=== PATIENT | male | born 1955 | race Caucasian/White ===

== ENCOUNTER 2021-01-11 07:49 | Emergency (ER) | payer OTHER ==
[2021-01-11 08:42] LABS: Hemoglobin 10.3 g/dL (14.0-18.0); Mean Corpuscular HGB CONC 33.9 g/dL (32.0-36.0); Mean Corpuscular Hemoglobin 30.9 pg (27.0-31.0); Mean Corpuscular Volume 91.3 fL (78.0-98.0); Mean Platelet Volume 6.8 fL (7.4-10.4); Platelet Count 274 thou/uL (130-400); RBC Distribution Width 12.3 % (11.5-14.5); Red Blood Cell (RBC) Count 3.34 mill/uL (4.70-6.10); White Blood Cell (WBC) Count 15.9 thou/uL (4.8-10.8)
[2021-01-11] MEDS ORDERED: Cefepime 1 GM VIAL ONE (08:56)
[2021-01-11] MEDS ORDERED: Cefepime 2 GM VIAL ONE (08:59)
[2021-01-11 09:06] LABS: Anion Gap 11 mmol/L (10-20); BUN (Urea Nitrogen) 16 mg/dL (8.4-25.7); Calc. Creatinine Clearance 0 mL/min (70-130); Carbon Dioxide 22 mmol/L (23-31); Chloride 99 mmol/L (98-107); Potassium 3.7 mmol/L (3.5-5.1); Sodium 128 mmol/L (136-145)
[2021-01-11 09:07] LABS: ALT (SGPT) 8 U/L (8-55); AST (SGOT) 9 U/L (5-34); Albumin 3.7 g/dL (3.4-4.8); Alkaline Phosphatase 98 U/L (40-110); Band 4 % (5-11); Bilirubin, Total 1.1 mg/dL (0.2-1.2); Calcium 9.1 mg/dL (7.8-10.44); Globulin 2.6 g/dL (2.4-3.5); Glucose 137 mg/dL (80-115); Lymphocytes 11 % (21-51); MDiff Complete? YES; Monocytes 11 % (0-10); Neutrophil 74 % (42-75); Platelet Morphology Comment Appears Adequate; Polychromasia SLIGHT = 2-3 cells (100X) (0-2/hpf); Protein, Total 6.3 g/dL (5.8-8.1)
[2021-01-11] MEDS ORDERED: VANCOMYCIN 1.75 GM/350 ML BAG 1.75 GM in Premix Bag 1 BAG IVPB SCH (09:15)
[2021-01-11] MEDS ORDERED: Iopamidol-370 76% 500 ML 1 ML ONE (09:30)
[2021-01-11] MEDS ORDERED: Lidocaine 1% w/Epinephrine 1:100K 20 ML VIAL ONE (09:58)
[2021-01-11] MEDS ORDERED: Morphine 4 MG/ML VIAL ONE (10:03)
[2021-01-11] MEDS ORDERED: Ondansetron PF 4 MG/2 ML Vial ONE (10:03)
== END 2021-01-11 11:08 | disposition home or self-care (01) ==
LOC: ERS 07:49
DX: K61.1 Rectal abscess (principal); K21.9 Gastro-esophageal reflux disease without esophagitis; F17.210 Nicotine dependence, cigarettes, uncomplicated; Z79.899 Other long term (current) drug therapy
CPT/HCPCS: 36415; 72193; 80053; 83605; 85025; 87040; 96365; 96375; J0692; J2270; J2405; J3370; Q9967

== ENCOUNTER 2021-09-21 08:14 | Inpatient (IN) | payer OTHER ==
[2021-09-21] MEDS ORDERED: Iopamidol 370 76% 100 ML VIAL ONE (09:26)
[2021-09-21 09:55] LABS: #Lymphocytes 0.6 thou/uL (1.20-3.40); #Monocytes 0.7 thou/uL (0.11-0.59); #Neutrophils 10.4 thou/uL (1.40-6.50); %Basophils 0.1 % (0.0-1.0); %Eosinophils 0.1 % (0.0-10.0); %Lymphocytes 5.2 % (21.0-51.0); %Monocytes 5.8 % (0.0-10.0); %Neutrophils 88.8 % (42.0-75.0); Hemoglobin 9.3 g/dL (14.0-18.0); Mean Corpuscular HGB CONC 33.8 g/dL (32.0-36.0); Mean Corpuscular Hemoglobin 31.1 pg (27.0-31.0); Platelet Count 321 thou/uL (130-400); RBC Distribution Width 12.4 % (11.5-14.5); White Blood Cell (WBC) Count 11.7 thou/uL (4.8-10.8)
[2021-09-21] MEDS ORDERED: Vancomycin 1.5 GRAM/300 ML BAG 1.5 GM in Premix Bag 1 BAG IVPB SCH (10:00)
[2021-09-21] MEDS ORDERED: metroNIDAZOLE 500 MG in Premix Bag 1 BAG IVPB SCH (10:00)
[2021-09-21 10:18] LABS: ALT (SGPT) 11 U/L (8-55); AST (SGOT) 26 U/L (5-34); Albumin 3.8 g/dL (3.4-4.8); Alkaline Phosphatase 100 U/L (40-110); Anion Gap 14 mmol/L (10-20); BUN (Urea Nitrogen) 23 mg/dL (8.4-25.7); Bilirubin, Total 0.7 mg/dL (0.2-1.2); Calc. Creatinine Clearance 0 mL/min (70-130); Calcium 9.7 mg/dL (7.8-10.44); Carbon Dioxide 22 mmol/L (23-31); Chloride 96 mmol/L (98-107); Glucose 140 mg/dL (80-115); Protein, Total 6.8 g/dL (5.8-8.1); Sodium 128 mmol/L (136-145)
[2021-09-21] MEDS ORDERED: cefTRIAXone\\ROCEPHIN 1 GM VIAL ONE (10:43)
[2021-09-21 11:02] LABS: SARS-CoV-2 NAA Rapid Test Not Detected (NotDetected)
[2021-09-21 13:02] LABS: Lactic Acid 1.3 mmol/L (0.5-2.2)
[2021-09-21] MEDS ORDERED: Bupivacaine PF 0.5% 30 ML VIAL ONE (15:51)
[2021-09-21] MEDS ORDERED: Xylocaine 1% w/ Epi 1:100K 10 ML VIAL ONE (15:51)
[2021-09-21] MEDS ORDERED: Fentanyl 250 MCG/5 ML VIAL ONE (16:04)
[2021-09-21] MEDS ORDERED: cefOXitin 2 GM VIAL ONE (16:11)
[2021-09-21] MEDS ORDERED: Sodium Chloride 0.9% 100 ML ONE (16:11)
[2021-09-21] MEDS ORDERED: PHENYLEPHRINE-NS 100 MCG/ML 10 ML SYRINGE ONE (16:20)
[2021-09-21] MEDS ORDERED: Ondansetron PF 4 MG/2 ML Vial ONE (16:20)
[2021-09-21] MEDS ORDERED: Lidocaine 1% PF 5 ML VIAL ONE (16:20)
[2021-09-21] MEDS ORDERED: PROPOFOL 200 MG/20 ML VIAL ONE (16:20)
[2021-09-21] MEDS ORDERED: Dexamethasone 20 MG/5 ML VIAL ONE (16:20)
[2021-09-21] MEDS ORDERED: ePHEDrine 50 MG/ML VIAL ONE (16:20)
[2021-09-21] MEDS ORDERED: Ondansetron PF 4 MG/2 ML Vial IVP PRN (18:08)
[2021-09-21] MEDS ORDERED: Ondansetron ODT 4 MG TAB PO PRN (18:08)
[2021-09-21] MEDS ORDERED: Acetaminophen 650 MG Suppository PR PRN (18:08)
[2021-09-21] MEDS ORDERED: Acetaminophen 325 MG TAB PO PRN (18:08)
[2021-09-21] MEDS ORDERED: Thiamine HCl 200 MG/2 ML VIAL IM SCH (18:15)
[2021-09-21] MEDS ORDERED: cefTRIAXone\\ROCEPHIN 1 GM in Sodium Chloride 0.9% 100 ML IVPB SCH (18:15)
[2021-09-21 19:29] LABS: Anion Gap 13 mmol/L (10-20); BUN (Urea Nitrogen) 18 mg/dL (8.4-25.7); Calc. Creatinine Clearance 0 mL/min (70-130); Calcium 8.2 mg/dL (7.8-10.44); Carbon Dioxide 21 mmol/L (23-31); Chloride 101 mmol/L (98-107); Glucose 121 mg/dL (80-115); Sodium 131 mmol/L (136-145)
[2021-09-21] MEDS: Sodium Chloride 0.9% 1,000 ML IV SCH (20:12)
[2021-09-21] MEDS: metroNIDAZOLE 500 MG in Premix Bag 1 BAG IVPB SCH (20:14)
[2021-09-21 20:51] VITALS: BMI 20.7
[2021-09-21] MEDS: levETIRAcetam 500 MG TAB PO SCH (20:52)
[2021-09-21] MEDS: Cefepime 2 GM in Sodium Chloride 0.9% 100 ML IVPB SCH (21:23)
[2021-09-21] MEDS: Vancomycin 1 GM in Premix Bag 1 BAG IVPB SCH (23:01)
[2021-09-22] MEDS: metroNIDAZOLE 500 MG in Premix Bag 1 BAG IVPB SCH ×3 (04:01→20:24)
[2021-09-22 04:17] LABS: Potassium, Urine 47.4 mmol/L
[2021-09-22 05:01] LABS: #Lymphocytes 0.5 thou/uL (1.20-3.40); #Monocytes 0.4 thou/uL (0.11-0.59); #Neutrophils 10.7 thou/uL (1.40-6.50); %Lymphocytes 4.6 % (21.0-51.0); %Monocytes 3.5 % (0.0-10.0); %Neutrophils 91.9 % (42.0-75.0); Hemoglobin 8.3 g/dL (14.0-18.0); Mean Corpuscular Hemoglobin 31.7 pg (27.0-31.0); Mean Corpuscular Volume 93.1 fL (78.0-98.0); Mean Platelet Volume 6.1 fL (7.4-10.4); Platelet Count 283 thou/uL (130-400); RBC Distribution Width 12.4 % (11.5-14.5); White Blood Cell (WBC) Count 11.7 thou/uL (4.8-10.8)
[2021-09-22 05:19] LABS: Anion Gap 12 mmol/L (10-20); BUN (Urea Nitrogen) 18 mg/dL (8.4-25.7); Calc. Creatinine Clearance 79 mL/min (70-130); Calcium 8.4 mg/dL (7.8-10.44); Carbon Dioxide 20 mmol/L (23-31); Chloride 103 mmol/L (98-107); Glucose 132 mg/dL (80-115); Potassium 4.6 mmol/L (3.5-5.1); Sodium 130 mmol/L (136-145)
[2021-09-22] MEDS: Vancomycin 1 GM in Premix Bag 1 BAG IVPB SCH (10:02)
[2021-09-22] MEDS: Folic Acid 1 MG TAB PO SCH (10:02)
[2021-09-22] MEDS: Cyanocobalamin (Vitamin B-12) 1,000 MCG TAB PO SCH (10:02)
[2021-09-22] MEDS: Thiamine 100 MG TAB PO SCH (10:02)
[2021-09-22] MEDS: levETIRAcetam 500 MG TAB PO SCH (10:03)
[2021-09-22] MEDS: Cefepime 2 GM in Sodium Chloride 0.9% 100 ML IVPB SCH ×2 (10:05→22:09)
[2021-09-22] MEDS: Sodium Chloride 0.9% 1,000 ML IV SCH ×2 (13:36→22:58)
[2021-09-22 21:21] LABS: Vancomycin, Trough 19.6 ug/mL
[2021-09-22] MEDS: Vancomycin HCl 750 MG in Sodium Chloride 0.9% 250 ML 250 ML IVPB SCH (22:56)
[2021-09-23] MEDS: metroNIDAZOLE 500 MG in Premix Bag 1 BAG IVPB SCH ×2 (03:27→12:57)
[2021-09-23 05:13] LABS: #Basophils 0.1 thou/uL (0.0-0.2); #Lymphocytes 1.3 thou/uL (1.20-3.40); #Monocytes 0.8 thou/uL (0.11-0.59); #Neutrophils 12.6 thou/uL (1.40-6.50); %Basophils 0.7 % (0.0-1.0); %Eosinophils 0.1 % (0.0-10.0); %Lymphocytes 8.7 % (21.0-51.0); %Monocytes 5.2 % (0.0-10.0); %Neutrophils 85.3 % (42.0-75.0); Hemoglobin 7.8 g/dL (14.0-18.0); Mean Corpuscular HGB CONC 33.1 g/dL (32.0-36.0); Mean Corpuscular Volume 93.7 fL (78.0-98.0); Mean Platelet Volume 6.3 fL (7.4-10.4); Platelet Count 303 thou/uL (130-400); RBC Distribution Width 12.6 % (11.5-14.5); Red Blood Cell (RBC) Count 2.51 mill/uL (4.70-6.10); White Blood Cell (WBC) Count 14.7 thou/uL (4.8-10.8)
[2021-09-23 05:41] LABS: Anion Gap 12 mmol/L (10-20); BUN (Urea Nitrogen) 27 mg/dL (8.4-25.7); Calc. Creatinine Clearance 85 mL/min (70-130); Calcium 8.5 mg/dL (7.8-10.44); Carbon Dioxide 22 mmol/L (23-31); Chloride 105 mmol/L (98-107); Glucose 111 mg/dL (80-115); Potassium 4.8 mmol/L (3.5-5.1); Sodium 134 mmol/L (136-145)
[2021-09-23 07:25] LABS: Reticulocyte Count 0.7 % (0.5-1.5)
[2021-09-23 07:31] LABS: INR-International Normal Ratio 1.1; Prothrombin Time 13.8 sec (12.0-14.7)
[2021-09-23 07:43] LABS: Iron 38 ug/dL (65-175); Iron Binding Capacity, Total 221 mcg/dL (261-462)
[2021-09-23 08:01] VITALS: BP 110/65; TEMP 98.8
[2021-09-23 08:09] LABS: Ferritin 246.47 ng/mL (22-322)
[2021-09-23] MEDS: Cyanocobalamin (Vitamin B-12) 1,000 MCG TAB PO SCH (10:07)
[2021-09-23] MEDS: Thiamine 100 MG TAB PO SCH (10:07)
[2021-09-23] MEDS: Vancomycin HCl 750 MG in Sodium Chloride 0.9% 250 ML 250 ML IVPB SCH (10:08)
[2021-09-23] MEDS: Folic Acid 1 MG TAB PO SCH (10:08)
[2021-09-23] MEDS: Cefepime 2 GM in Sodium Chloride 0.9% 100 ML IVPB SCH (10:17)
[2021-09-23 12:09] LABS: #Lymphocytes 1.3 thou/uL (1.20-3.40); #Monocytes 0.8 thou/uL (0.11-0.59); #Neutrophils 9.6 thou/uL (1.40-6.50); %Eosinophils 0.1 % (0.0-10.0); %Lymphocytes 11.4 % (21.0-51.0); %Monocytes 6.9 % (0.0-10.0); %Neutrophils 81.6 % (42.0-75.0); Hemoglobin 7.7 g/dL (14.0-18.0); Mean Corpuscular HGB CONC 33.1 g/dL (32.0-36.0); Mean Corpuscular Hemoglobin 31.2 pg (27.0-31.0); Mean Platelet Volume 6.4 fL (7.4-10.4); Platelet Count 283 thou/uL (130-400); RBC Distribution Width 12.6 % (11.5-14.5); Red Blood Cell (RBC) Count 2.46 mill/uL (4.70-6.10); White Blood Cell (WBC) Count 11.8 thou/uL (4.8-10.8)
== END 2021-09-23 15:50 | disposition home or self-care (01) | DRG 854 ==
LOC: ERS 08:14 → SDC 14:47 → SURG A 14:51
PROVIDERS: ADMIT Hospitalist; ATTEND Internal Medicine
PROC: 0D9P0ZZ Drainage of Rectum, Open Approach (ICD-10-PCS; principal; 2021-09-21)
DX: A41.9 Sepsis, unspecified organism (principal); K61.1 Rectal abscess; E87.1 Hypo-osmolality and hyponatremia; N17.9 Acute kidney failure, unspecified; E87.2 Acidosis; Z20.822 Contact with and (suspected) exposure to COVID-19; K21.9 Gastro-esophageal reflux disease without esophagitis; F17.210 Nicotine dependence, cigarettes, uncomplicated; F10.20 Alcohol dependence, uncomplicated; G40.909 Epilepsy, unspecified, not intractable, without status epilepticus; F04 Amnestic disorder due to known physiological condition; F03.90 Unspecified dementia, unspecified severity, without behavioral disturbance, psychotic disturbance, mood disturbance, and anxiety; Z88.0 Allergy status to penicillin; Z91.018 Allergy to other foods; Z79.899 Other long term (current) drug therapy
CPT/HCPCS: 36415; 74177; 80048; 80053; 80202; 82436; 82607; 82728; 82746; 83540; 83550; 83605; 83930; 83935; 84133; 84300; 84484; 84560; 85025; 85046; 85610; 85730; 86850; 86900; 86901; 87040; 93005; 96374; 96375; J0692; J0694; J0696; J1100; J2405; J2704; J3010; J3370; J3411; J3490; J7050; Q9967; S0020; U0002

== ENCOUNTER 2022-02-01 09:34 | Outpatient (CLI) | payer OTHER ==
[2022-02-01 10:57] LABS: #Basophils 0.1 10x3/uL (0.0-0.2); #Eosinphils 0.1 10x3/uL (0.0-0.5); #Monocytes 0.5 10x3/uL (0.0-1.1); #Neutrophils 4.2 10x3/uL (1.5-8.4); %Basophils 0.8 % (0.0-2.0); %Lymphocytes 21.7 % (18.0-47.0); %Monocytes 7.6 % (0.0-10.0); %Neutrophils 68.6 % (40.0-75.0); Hemoglobin 9.9 g/dL (13.5-17.5); Mean Corpuscular HGB CONC 35.2 g/dL (32.0-36.0); Mean Corpuscular Volume 82.4 fl (81.2-95.1); Mean Platelet Volume 8.9 fl (7.4-10.4); Platelet Count 331 10x3/uL (150-450); RBC Distribution Width 14.9 % (11.5-14.5); Red Blood Cell (RBC) Count 3.41 10x6/uL (4.32-5.72); White Blood Cell (WBC) Count 6.1 10x3/uL (3.5-10.5)
[2022-02-01 11:19] LABS: Anion Gap 17 mmol/L (10-20); BUN (Urea Nitrogen) 25 mg/dL (8.4-25.7); Calc. Creatinine Clearance 0 mL/min (70-130); Calcium 9.6 mg/dL (7.8-10.44); Carbon Dioxide 20 mmol/L (23-31); Chloride 94 mmol/L (98-107); Estimated GFR 79; Glucose 159 mg/dL (80-115); Potassium 3.8 mmol/L (3.5-5.1); Sodium 127 mmol/L (136-145)
== END 2022-02-01 09:35 | disposition home or self-care (01) ==
LOC: LABBT 09:34
PROVIDERS: ATTEND Surgery
DX: Z01.812 Encounter for preprocedural laboratory examination (principal); K60.3 Anal fistula; Z20.822 Contact with and (suspected) exposure to COVID-19
CPT/HCPCS: 80048; 85025; 87811

== ENCOUNTER 2022-02-06 08:11 | Day surgery (SDC) | payer OTHER ==
[2022-01-31 15:04] VITALS: BMI 20.7
[2022-02-06 10:09] LABS: Anion Gap 12 mmol/L (10-20); BUN (Urea Nitrogen) 16 mg/dL (8.4-25.7); Calc. Creatinine Clearance 70 mL/min (70-130); Calcium 9.8 mg/dL (7.8-10.44); Carbon Dioxide 25 mmol/L (23-31); Chloride 97 mmol/L (98-107); Estimated GFR 85; Glucose 100 mg/dL (80-115); Potassium 4.9 mmol/L (3.5-5.1); Sodium 129 mmol/L (136-145)
[2022-02-06] MEDS ORDERED: Lidocaine 2% 6 ML SYR ONE (10:27)
[2022-02-06] MEDS ORDERED: Bupivacaine 0.25% HCL 30 ML VIAL ONE (10:27)
[2022-02-06] MEDS ORDERED: Lidocaine 1% w/Epinephrine 1:100K 20 ML VIAL ONE (10:27)
[2022-02-06] MEDS ORDERED: Albuterol Sulfate 2.5 mg/3 ml Neb NEB SCH (10:30)
[2022-02-06] MEDS ORDERED: fentaNYL Citrate/PF 100 MCG/2 ML SYRINGE ONE (10:41)
[2022-02-06] MEDS ORDERED: Albuterol Sulfate 1.25 MG/3 ML NEB ONE (10:41)
[2022-02-06] MEDS ORDERED: Sodium Chloride 0.9% 0 ML ONE (10:43)
[2022-02-06] MEDS ORDERED: cefOXitin 2 GM VIAL ONE (10:43)
[2022-02-06] MEDS ORDERED: Levofloxacin 500 mg/D5W 100 ml Premix Bag ONE (11:19)
[2022-02-06] MEDS ORDERED: PROPOFOL 200 MG/20 ML VIAL ONE (11:35)
[2022-02-06] MEDS ORDERED: Ondansetron PF 4 MG/2 ML Vial ONE (11:35)
[2022-02-06] MEDS ORDERED: Lidocaine 1% PF 5 ML VIAL ONE (11:35)
[2022-02-06] MEDS ORDERED: ePHEDrine 50 MG/ML VIAL ONE (11:35)
[2022-02-06] MEDS ORDERED: Glycopyrrolate 0.2 MG/ML 5 ML SYRINGE ONE (11:35)
== END 2022-02-06 15:13 | disposition home or self-care (01) ==
LOC: SDC 08:11
PROVIDERS: ATTEND Surgery
PROC: 0DQQ8ZZ Repair Anus, Via Natural or Artificial Opening Endoscopic (ICD-10-PCS; principal; 2022-02-06)
DX: K60.3 Anal fistula (principal); F17.210 Nicotine dependence, cigarettes, uncomplicated; Z88.0 Allergy status to penicillin; Z91.018 Allergy to other foods
CPT/HCPCS: 71045; 80048; 93005; 93010; J0694; J1956; J2405; J2704; J3490; S0020

== ENCOUNTER 2023-04-03 17:07 | Emergency (ER) | payer OTHER ==
[~2023-04-03 17:07] MED LIST: Iopamidol-370 76% 500 ML MDV (1 ML CHARGE) ONE
[2023-04-03] MEDS ORDERED: Thiamine HCl 200 MG/2 ML VIAL SLOW IVP SCH (18:00)
[2023-04-03 18:29] LABS: #Eosinphils 0.1 thou/uL (0.0-0.7); #Monocytes 1.2 thou/uL (0.11-0.59); #Neutrophils 11.6 thou/uL (1.40-6.50); %Basophils 0.2 % (0.0-1.0); %Eosinophils 0.8 % (0.0-10.0); %Lymphocytes 9.5 % (21.0-51.0); %Monocytes 8.2 % (0.0-10.0); %Neutrophils 80.6 % (42.0-75.0); Hematocrit 27.5 % (42.0-52.0); Hemoglobin 9.8 g/dL (14.0-18.0); Mean Corpuscular HGB CONC 35.6 g/dL (32.0-36.0); Mean Corpuscular Hemoglobin 31.1 pg (27.0-31.0); Mean Corpuscular Volume 87.3 fl (78.0-98.0); Mean Platelet Volume 8.7 fL (7.4-10.4); Platelet Count 367 10x3/uL (130-400); RBC Distribution Width 15.3 % (11.5-14.5); Red Blood Cell (RBC) Count 3.15 mill/uL (4.70-6.10); White Blood Cell (WBC) Count 14.4 10x3/uL (4.8-10.8)
[2023-04-03 18:57] LABS: ALT (SGPT) 7 U/L (8-55); AST (SGOT) 10 U/L (5-34); Albumin 3.9 g/dL (3.4-4.8); Alkaline Phosphatase 173 U/L (40-110); Anion Gap 12 mmol/L (10-20); BUN (Urea Nitrogen) 12 mg/dL (8.4-25.7); Bilirubin, Total 0.8 mg/dL (0.2-1.2); Calc. Creatinine Clearance 0 mL/min (70-130); Calcium 9.3 mg/dL (7.8-10.44); Carbon Dioxide 25 mmol/L (23-31); Chloride 97 mmol/L (98-107); Estimated GFR 66; Globulin 3.1 g/dL (2.4-3.5); Glucose 111 mg/dL (80-115); Potassium 3.8 mmol/L (3.5-5.1); Sodium 130 mmol/L (136-145)
[2023-04-03] MEDS ORDERED: Lidocaine 1% w/Epinephrine 1:100K 20 ML VIAL ONE (20:04)
== END 2023-04-03 21:00 | disposition home or self-care (01) ==
LOC: ERS 17:07
DX: L02.31 Cutaneous abscess of buttock (principal); D64.9 Anemia, unspecified; K21.9 Gastro-esophageal reflux disease without esophagitis; F17.210 Nicotine dependence, cigarettes, uncomplicated
CPT/HCPCS: 10061; 36415; 74177; 80053; 82140; 83605; 85025; 87040; 87070; 87077; 87205; 93005; 96374; J3411

== ENCOUNTER 2023-07-23 07:48 | Day surgery (SDC) | payer OTHER ==
[2023-07-23 08:30] LABS: #Monocytes 0.9 thou/uL (0.11-0.59); #Neutrophils 13.9 thou/uL (1.40-6.50); %Basophils 0.2 % (0.0-1.0); %Eosinophils 0.1 % (0.0-10.0); %Lymphocytes 5.1 % (21.0-51.0); %Monocytes 5.8 % (0.0-10.0); Hematocrit 33.3 % (42.0-52.0); Hemoglobin 11.2 g/dL (14.0-18.0); Mean Corpuscular HGB CONC 33.6 g/dL (32.0-36.0); Mean Corpuscular Hemoglobin 31.5 pg (27.0-31.0); Mean Corpuscular Volume 93.5 fl (78.0-98.0); Platelet Count 337 10x3/uL (130-400); RBC Distribution Width 14.7 % (11.5-14.5); Red Blood Cell (RBC) Count 3.56 mill/uL (4.70-6.10); White Blood Cell (WBC) Count 15.8 10x3/uL (4.8-10.8)
[2023-07-23] MEDS ORDERED: Cefepime 2 GM VIAL ONE (08:39)
[2023-07-23] MEDS ORDERED: metroNIDAZOLE 500 MG/100 ML BAG ONE (08:39)
[2023-07-23] MEDS ORDERED: Sodium Chloride 0.9% 100 ML ONE (08:39)
[2023-07-23 09:00] LABS: ALT (SGPT) Less than 7 U/L (8-55); AST (SGOT) 8 U/L (5-34); Albumin 3.6 g/dL (3.4-4.8); Alkaline Phosphatase 195 U/L (40-110); Anion Gap 17 mmol/L (10-20); BUN (Urea Nitrogen) 14 mg/dL (8.4-25.7); Bilirubin, Total 0.8 mg/dL (0.2-1.2); Calc. Creatinine Clearance 0 mL/min (70-130); Calcium 8.9 mg/dL (7.8-10.44); Carbon Dioxide 18 mmol/L (23-31); Chloride 98 mmol/L (98-107); Estimated GFR 56; Globulin 3.2 g/dL (2.4-3.5); Glucose 149 mg/dL (80-115); Lipase 5 U/L (8-78); Potassium 3.2 mmol/L (3.5-5.1); Protein, Total 6.8 g/dL (5.8-8.1); Sodium 130 mmol/L (136-145)
[2023-07-23] MEDS ORDERED: Iopamidol-370 76% 500 ML MDV (1 ML CHARGE) ONE (10:37)
[2023-07-23 11:08] LABS: Bacteria/HPF None Seen HPF (None Seen); Bilirubin Negative (Negative); Blood, Urine Negative (Negative); CAUTI Indications for Culture Dysuria,urgency,freq; Clarity Clear (Clear); Glucose, Urine (Dipstick) Normal (Negative); Ketone, Urine Negative (Negative); Leukocyte Negative Leu/uL (Negative); Nitrite Negative (Negative); Protein, Urine (Dipstick) 20 mg/dL (Neg-Trace); RBC/HPF 0-3 HPF (0-3); Specific Gravity, Urine 1.017 (1.002-1.036); Squamous Epithelial 0-3 HPF (0-3); Urobilinogen Normal mg/dL (Less than 2); WBC/HPF 0-3 HPF (0-3); pH, Urine 6.5 (5.0-9.0)
[2023-07-23 11:15] LABS: Urine Culture Reflex No No
[2023-07-23] MEDS ORDERED: fentaNYL PF 100 MCG/2 ML SYRINGE ONE (12:08)
[2023-07-23] MEDS ORDERED: PROPOFOL 20 ML ONE (12:09)
[2023-07-23] MEDS ORDERED: ePHEDrine Sulfate 50 MG/10 ML VIAL ONE (12:42)
[2023-07-23] MEDS ORDERED: Bupivacaine PF 0.5% 30 ML VIAL ONE (12:44)
[2023-07-23] MEDS ORDERED: EPINEPHrine 1 MG/ML VIAL ONE (12:44)
[2023-07-23] MEDS ORDERED: Ondansetron PF 4 MG/2 ML Vial ONE (12:50)
[2023-07-23] MEDS ORDERED: PHENYLEPHRINE-NS 100 MCG/ML 10 ML SYRINGE ONE (12:50)
[2023-07-23 16:04] LABS: Lactic Acid 2.6 mmol/L (0.5-2.2)
== END 2023-07-23 17:08 | disposition home or self-care (01) ==
LOC: ERS 07:48 → SDC 12:25
PROVIDERS: ATTEND Specialist
PROC: 0D9P3ZZ Drainage of Rectum, Percutaneous Approach (ICD-10-PCS; principal; 2023-07-23)
DX: K61.1 Rectal abscess (principal); Z88.0 Allergy status to penicillin; F10.90 Alcohol use, unspecified, uncomplicated; Z87.891 Personal history of nicotine dependence; Z79.899 Other long term (current) drug therapy
CPT/HCPCS: 36415; 51701; 71045; 74177; 80053; 81001; 82274; 83605; 83690; 85025; 87040; 93005; 94760; 96361; 96365; J0171; J0692; J2405; J2704; J3490; Q9967; S0020

== ENCOUNTER 2023-12-25 07:56 | Emergency (ER) | payer OTHER ==
[2023-12-25] MEDS ORDERED: Ketorolac Tromethamine 30 MG (1 mL) VIAL ONE (08:57)
[2023-12-25 09:16] LABS: #Basophils 0.03 10x3/uL (0.0-0.2); %Basophils 0.2 % (0.0-1.0); %Eosinophils 0.3 % (0.0-10.0); %Lymphocytes 7.7 % (21.0-51.0); %Monocytes 7.4 % (0.0-10.0); %Neutrophils 83.7 % (42.0-75.0); Hematocrit 28.9 % (42.0-52.0); Hemoglobin 9.9 g/dL (14.0-18.0); Mean Corpuscular HGB CONC 34.3 g/dL (32.0-36.0); Mean Corpuscular Volume 96.3 fL (78.0-98.0); Platelet Count 330 10x3/uL (130-400); RBC Distribution Width 14.8 % (11.5-14.5)
[2023-12-25 09:43] LABS: ALT (SGPT) 6 U/L (8-55); AST (SGOT) 10 U/L (5-34); Albumin 2.5 g/dL (3.4-4.8); Alkaline Phosphatase 183 U/L (40-110); Anion Gap 13 mmol/L (10-20); BUN (Urea Nitrogen) 12 mg/dL (8.4-25.7); Bilirubin, Total 0.8 mg/dL (0.2-1.2); Calc. Creatinine Clearance 0 mL/min (70-130); Calcium 8.5 mg/dL (7.8-10.44); Carbon Dioxide 20 mmol/L (23-31); Chloride 103 mmol/L (98-107); Estimated GFR 71; Globulin 3.4 g/dL (2.4-3.5); Glucose 94 mg/dL (80-115); Potassium 3.4 mmol/L (3.5-5.1); Protein, Total 5.9 g/dL (5.8-8.1); Sodium 133 mmol/L (136-145)
[2023-12-25] MEDS ORDERED: Sodium Chloride 0.9% 100 ML ONE (11:31)
[2023-12-25] MEDS ORDERED: Cefepime 2 GM VIAL ONE (11:31)
[2023-12-25] MEDS ORDERED: Bupivacaine/Epinephrine 0.25% 30 ML VIAL IJ SCH (12:00)
[2023-12-25] MEDS ORDERED: Lidocaine 2% 20 ml MDV SC SCH (12:00)
[2023-12-25] MEDS ORDERED: Lidocaine 1% w/Epinephrine 1:100K 20 ML VIAL ONE (12:06)
[2023-12-25] MEDS ORDERED: Bupivacaine 0.25% 10 ML VIAL ONE (12:20)
[2023-12-25] MEDS ORDERED: metroNIDAZOLE 500 MG (100 mL) BAG ONE (12:23)
[2023-12-25] MEDS ORDERED: Iopamidol-370 76% 500 ML MDV (1 ML CHARGE) ONE (13:18)
== END 2023-12-25 14:35 | disposition home or self-care (01) ==
LOC: ERS 07:56
DX: K61.1 Rectal abscess (principal); F17.210 Nicotine dependence, cigarettes, uncomplicated
CPT/HCPCS: 36415; 74177; 80053; 85025; 96365; 96366; 96375; J0665; J0692; J1885; J3490; Q9967

== ENCOUNTER 2024-02-20 08:14 | Emergency (ER) | payer OTHER ==
[2024-02-20] MEDS ORDERED: Lidocaine 1% PF 5 ML VIAL ONE (09:33)
[2024-02-20] MEDS ORDERED: Lidocaine 1% w/Epinephrine 1:100K 20 ML VIAL ONE (09:33)
[2024-02-20 10:27] LABS: #Basophils 0.03 10x3/uL (0.0-0.2); #Eosinphils Less than 0.03 10x3/uL (0.0-0.7); %Basophils 0.2 % (0.0-1.0); %Eosinophils 0.1 % (0.0-10.0); %Monocytes 4.3 % (0.0-10.0); %Neutrophils 90.2 % (42.0-75.0); Hemoglobin 11.9 g/dL (14.0-18.0); Mean Corpuscular Hemoglobin 32.5 pg (27.0-31.0); Mean Corpuscular Volume 92.9 fL (78.0-98.0); Mean Platelet Volume 9.1 fL (7.4-10.4); Platelet Count 414 10x3/uL (130-400); RBC Distribution Width 13.6 % (11.5-14.5); Red Blood Cell (RBC) Count 3.66 mill/uL (4.70-6.10)
[2024-02-20 11:18] LABS: ALT (SGPT) 7 U/L (8-55); AST (SGOT) 17 U/L (5-34); Albumin 2.9 g/dL (3.4-4.8); Alkaline Phosphatase 226 U/L (40-110); Anion Gap 14 mmol/L (10-20); BUN (Urea Nitrogen) 10 mg/dL (8.4-25.7); Bilirubin, Total 0.7 mg/dL (0.2-1.2); Calc. Creatinine Clearance 0 mL/min (70-130); Calcium 8.9 mg/dL (7.8-10.44); Carbon Dioxide 22 mmol/L (23-31); Chloride 103 mmol/L (98-107); Estimated GFR 83; Glucose 89 mg/dL (80-115); Magnesium 1.9 mg/dL (1.6-2.6); Potassium 4.4 mmol/L (3.5-5.1); Protein, Total 6.9 g/dL (5.8-8.1); Sodium 135 mmol/L (136-145)
[2024-02-20] MEDS ORDERED: Sodium Chloride 0.9% 100 ML ONE (14:31)
[2024-02-20] MEDS ORDERED: Cefepime 2 GM VIAL ONE (14:31)
[2024-02-20 15:00] LABS: Lactic Acid 3.2 mmol/L (0.5-2.2)
[2024-02-20] MEDS ORDERED: metroNIDAZOLE 500 MG (100 mL) BAG ONE (15:19)
[2024-02-20] MEDS ORDERED: Iopamidol-370 76% 500 ML MDV (1 ML CHARGE) ONE (15:51)
== END 2024-02-20 17:06 | disposition home or self-care (01) ==
LOC: ERS 08:14
DX: K61.1 Rectal abscess (principal); I10 Essential (primary) hypertension; F17.210 Nicotine dependence, cigarettes, uncomplicated
CPT/HCPCS: 36416; 46040; 74177; 80053; 83605; 83735; 85025; 87040; 87070; 87077; 87186; 87205; 96361; 96374; 96375; J0692; J3490; Q9967